=== PATIENT | female | born 1980 | race Caucasian/White ===

== ENCOUNTER 2022-03-13 07:46 | Day surgery (SDC) | payer OTHER ==
[2022-03-08 12:32] VITALS: BMI 24.3
[2022-03-13] MEDS ORDERED: Gabapentin 300 MG CAP ONE (08:43)
[2022-03-13] MEDS ORDERED: CeleCOXIB 100 MG CAP ONE (08:44)
[2022-03-13] MEDS ORDERED: Famotidine/PF 20 mg/2ml Vial ONE ×2 (08:44→10:37)
[2022-03-13] MEDS ORDERED: Bupivacaine PF 0.5% 30 ML VIAL ONE (08:51)
[2022-03-13] MEDS ORDERED: EPINEPHrine 1 MG/ML AMP ONE (08:51)
[2022-03-13 08:59] LABS: #Eosinphils 0.2 10x3/uL (0.0-0.5); #Monocytes 0.4 10x3/uL (0.0-1.1); #Neutrophils 5.4 10x3/uL (1.5-8.4); %Basophils 0.4 % (0.0-2.0); %Eosinophils 2.1 % (0.0-6.0); %Lymphocytes 23.4 % (18.0-47.0); %Monocytes 4.8 % (0.0-10.0); %Neutrophils 68.9 % (40.0-75.0); Hemoglobin 12.9 g/dL (12.0-15.5); Mean Corpuscular HGB CONC 32.7 g/dL (32.0-36.0); Mean Corpuscular Hemoglobin 31.3 pg (27.0-33.0); Mean Corpuscular Volume 95.6 fl (81.6-98.3); Mean Platelet Volume 10.6 fl (7.4-10.4); Platelet Count 264 10x3/uL (150-450); RBC Distribution Width 12.5 % (11.5-14.5); Red Blood Cell (RBC) Count 4.12 10x6/uL (3.90-5.03); White Blood Cell (WBC) Count 7.8 10x3/uL (3.5-10.5)
[2022-03-13 09:05] LABS: BHCG - Serum Negative (NEGATIVE); Pregs Control Background? CLEAR/WHITE (CLR/WHITE); Pregs Control Bar Appear? YES (CONTROL BAR)
[2022-03-13] MEDS ORDERED: CEFAZOLIN 2 GM VIAL ONE (10:04)
[2022-03-13] MEDS ORDERED: SUGAMMADEX SODIUM 200 MG/2 ML VIAL ONE (10:37)
[2022-03-13] MEDS ORDERED: Fentanyl 100 MCG/2 ML VIAL ONE ×3 (10:43→12:16)
[2022-03-13] MEDS ORDERED: PROPOFOL 20 ML ONE (10:43)
[2022-03-13] MEDS ORDERED: Midazolam HCl 2 mg/2 ml Vial ONE (10:45)
[2022-03-13] MEDS ORDERED: Dexamethasone 4 mg/ml Vial ONE (11:07)
[2022-03-13] MEDS ORDERED: Ondansetron PF 4 MG/2 ML Vial ONE ×2 (11:07→12:16)
[2022-03-13] MEDS ORDERED: Ketorolac Tromethamine 30 MG/ML VIAL ONE (12:00)
[2022-03-13] MEDS ORDERED: diphenhydrAMINE 50 MG/ML VIAL ONE (14:56)
== END 2022-03-13 16:30 | disposition home or self-care (01) ==
LOC: CSHSDC 07:46
PROVIDERS: ATTEND Student in an Organized Health Care Education/Training Program
DX: D25.9 Leiomyoma of uterus, unspecified (principal); N80.3 Endometriosis of pelvic peritoneum; N73.6 Female pelvic peritoneal adhesions (postinfective); N88.8 Other specified noninflammatory disorders of cervix uteri; N87.0 Mild cervical dysplasia; N80.8 Other endometriosis; N72 Inflammatory disease of cervix uteri; Z20.822 Contact with and (suspected) exposure to COVID-19; Z79.899 Other long term (current) drug therapy
CPT/HCPCS: 84703; 85025; 86850; 86900; 86901; 88305; 88307; C1713; J0171; J0690; J1100; J1200; J1885; J2250; J2405; J2704; J3010; S0020; S0028